=== PATIENT | male | born 1980 | race Caucasian/White ===

== ENCOUNTER 2017-06-09 14:42 | Emergency (ER) | payer BC ==
[2017-06-09 14:45] VITALS: BP 125/79; PULSE 100; RESP 18; TEMP 97.8
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
--- NOTE | 2017-06-09 15:31 | XR ---
EXAMINATION TYPE: XR knee complete LT DATE OF EXAM: 06/09/2017 CLINICAL HISTORY: Left knee pain TECHNIQUE: Three views of the left knee are obtained. COMPARISON: None. FINDINGS: There is no acute fracture/dislocation evident in left knee. Mild medial compartment join t space narrowing is noted as well as tibial sclerosis. The remaining joint spaces appear within norm al limits. The overlying soft tissue appears unremarkable. IMPRESSION: There is no acute fracture or dislocation in the left knee.
== END 2017-06-09 16:21 | disposition home or self-care (01) ==
LOC: EC 14:42
DX: S83.412A Sprain of medial collateral ligament of left knee, initial encounter (principal); F17.200 Nicotine dependence, unspecified, uncomplicated; X50.1XXA Overexertion from prolonged static or awkward postures, initial encounter; Y92.009 Unspecified place in unspecified non-institutional (private) residence as the place of occurrence of the external cause
CPT/HCPCS: 73562; 99283; L1830

== ENCOUNTER 2018-10-07 11:13 | Day surgery (SDC) | payer BC ==
[2018-10-05 12:05] VITALS: BMI 32.5
--- NOTE | 2018-10-07 05:05 | P.GSHP ---
History of Present Illness H&P Date: 10/07/18 CHIEF COMPLAINT: Colon screen HISTORY OF PRESENT ILLNESS: The patient is a 38-year-old male who presents for colon screen. Lower endoscopy was offered for further evaluation and management. PAST MEDICAL HISTORY: Please see list. PAST SURGICAL HISTORY: Please see list. MEDICATIONS: Please see list. ALLERGIES: Please see list. SOCIAL HISTORY: No illicit drug use FAMILY HISTORY: No reports of Crohn disease or ulcerative colitis. REVIEW OF ORGAN SYSTEMS: CONSTITUTIONAL: No reports of fevers or chills. PHYSICAL EXAM: VITAL SIGNS: Stable GENERAL: Well-developed pleasant in no acute distress. HEENT: No scleral icterus. Extraocular movements grossly intact. Moist buccal mucosa. NECK: Supple without lymphadenopathy. CHEST: Unlabored respirations. Equal bilateral excursions. CARDIOVASCULAR: Regular rate and rhythm. Distal 2+ pulses. ABDOMEN: Soft, nontender, nondistended. MUSCULOSKELETAL: No clubbing, cyanosis, or edema. ASSESSMENT: 1. Colon screen. PLAN: 1. Recommend proceeding with a lower endoscopy Past Medical History Past Medical History: No Reported History Additional Past Medical History / Comment(s): Hx pancreatitis (2017), states constipation, cramping & blood in stool. History of Any Multi-Drug Resistant Organisms: None Reported Past Surgical History: Appendectomy, Cholecystectomy, Orthopedic Surgery Additional Past Surgical History / Comment(s): FRACTURE LEFT TIBIA, PATELLA Past Anesthesia/Blood Transfusion Reactions: No Reported Reaction Past Psychological History: No Psychological Hx Reported Smoking Status: Former smoker Past Alcohol Use History: None Reported Additional Past Alcohol Use History / Comment(s): quit smoking 2 weeks ago, smoked 1/2-1 PPD. No alcohol fro over 8 months. Past Drug Use History: None Reported - Past Family History Father Family Medical History: Hypertension Medications and Allergies Home Medications Medication Instructions Recorded Confirmed Type Kratom (Supplement) 1 tab PO DIRECTED 10/05/18 History Multivitamins, Thera [Multivitamin 1 tab PO DAILY 10/05/18 10/05/18 History (formulary)] Vitamin B Complex 1 each PO DAILY 10/05/18 10/05/18 History Allergies Allergy/AdvReac Type Severity Reaction Status Date / Time No Known Allergies Allergy Verified 10/05/18 11:45
[~2018-10-07 11:13] MED LIST: LACTATED RINGERS 1,000 ML IV SCH
[2018-10-07 11:34] VITALS: TEMP 98.2
[2018-10-07] MEDS ORDERED: LIDOCAINE 1% 20 ML VIAL (10MG/ML) FOR IV START INTRADERMA ONE (11:36)
[2018-10-07] MEDS ORDERED: LIDOCAINE 1% INJ 10MG/ML (20 ML MDV) ONE (13:11)
[2018-10-07] MEDS ORDERED: PROPOFOL 10 MG/ML 20 ML VIAL IV ONE (13:11)
--- NOTE | 2018-10-07 13:49 | P.PCN ---
Date of Procedure: 10/07/18 Description of Procedure: PREOPERATIVE DIAGNOSIS: Colonoscopy screening, first Family history colon cancer, young age, very high risk POSTOPERATIVE DIAGNOSIS: Colonoscopy screening, first Family history colon cancer, young age, very high risk Rectal adenoma Sigmoid diverticulosis, early OPERATION: Colonoscopy to the ileocecal valve and appendiceal orifice. Colonoscopy with hot snare polypectomy SURGEON: Trini Rivera MD. ANESTHESIA: MAC. INDICATIONS: The patient is a 38-year-old male who presents for colonoscopy screening. He has family history of colon cancer at the age of 40s. Benefits and risks were described and informed consent was obtained. DESCRIPTION OF PROCEDURE: The patient had undergone Gatorade, MiraLAX and Dulcolax prep. He had been brought into the operating room and laid in the left lateral decubitus position. After adequate intravenous sedation, the rectum was examined with 2% lidocaine jelly. No external hemorrhoids were encountered. The rectal tone was within normal limits. No lesions were palpated in the rectal vault. An Olympus colonoscope was advanced until the ileocecal valve and appendiceal orifice were clearly viewed. The prep was poor with visualization of the mucosal folds. The scope was removed with visualization of each mucosal fold. Minimal sigmoid diverticulosis was encountered. Rectal adenoma 1 cm was snare polypectomy to completion. No grade 1 internal hemorrhoids were found. The colon was desufflated. The patient had tolerated the procedure well. Withdrawal time was over 6 minutes. FINDINGS: No internal hemorrhoids No external hemorrhoids No arteriovenous malformations Diffuse sigmoid diverticulosis Removal of 1 polyp: - Snare polypectomy 10 cm from the anal verge, 10 mm tubulovillous adenoma polyp. No focal colitis. RECOMMENDATIONS: Repeat colonoscopy 3 years, 2020 for high risk personal history and early family history of colon cancer Plan - Discharge Summary New Discharge Prescriptions: No Action Multivitamins, Thera [Multivitamin (formulary)] 1 tab PO DAILY Vitamin B Complex 1 each PO DAILY Kratom (Supplement) 1 tab PO DIRECTED Discharge Medication List Kratom (Supplement) 1 tab PO DIRECTED 10/05/18 [History] Multivitamins, Thera [Multivitamin (formulary)] 1 tab PO DAILY 10/05/18 [History ] Vitamin B Complex 1 each PO DAILY 10/05/18 [History]
[2018-10-07 14:03] VITALS: RESP 18
[2018-10-07 14:22] VITALS: BP 120/75; PULSE 70
== END 2018-10-07 14:24 | disposition home or self-care (01) ==
LOC: ORWHC2ENDO 11:13
PROVIDERS: ATTEND Surgery Plastic and Reconstructive Surgery
DX: Z12.11 Encounter for screening for malignant neoplasm of colon (principal); D12.8 Benign neoplasm of rectum; K57.30 Diverticulosis of large intestine without perforation or abscess without bleeding; Z80.0 Family history of malignant neoplasm of digestive organs; Z79.899 Other long term (current) drug therapy; Z90.49 Acquired absence of other specified parts of digestive tract; Z87.891 Personal history of nicotine dependence
CPT/HCPCS: 88305; 45385; J2001; J2704

== ENCOUNTER 2018-12-13 09:32 | Emergency (ER) | payer OTHER, BC ==
[2018-12-13 09:36] VITALS: RESP 18
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
--- NOTE | 2018-12-13 10:13 | XR ---
Lumbar spine HISTORY: Trauma and pain 3 views of the lumbar spine Lumbar vertebral bodies show preserved height, alignment, and bone mineralization. Spondylosis is pre sent at the thoracic lumbar junction. There is associated loss of disc height. Surgical clips noted i n the right upper quadrant. IMPRESSION: No acute fracture or subluxation. Degenerative disc disease. Consider lumbar MRI for bett er evaluation as indicated.
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
[2018-12-13 10:40] LABS: Appearance,Urine Clear (Clear); Bilirubin,Urine Negative (Negative); Blood,Urine Negative (Negative); Color,Urine Yellow; Glucose,Urine (UA) Negative (Negative); Ketones,Urine Negative (Negative); Leukocyte Esterase,Urine Negative (Negative); Nitrite,Urine Negative (Negative); PH, Urine 6.5 (5.0-8.0); Protein,Urine Negative (Negative); Specific Gravity,Urine 1.012 (1.001-1.035); Urobilinogen,Urine <2.0 mg/dL (<2.0)
[2018-12-13 10:56] VITALS: BP 114/74; PULSE 65; TEMP 97.6
== END 2018-12-13 10:54 | disposition home or self-care (01) ==
LOC: EC 09:32
DX: M25.551 Pain in right hip (principal); M54.5 Low back pain; Z87.891 Personal history of nicotine dependence; V43.52XA Car driver injured in collision with other type car in traffic accident, initial encounter; Y92.410 Unspecified street and highway as the place of occurrence of the external cause
CPT/HCPCS: 72100; 73521; 81003; 99284

== ENCOUNTER 2019-08-22 12:23 | Emergency (ER) | payer BC ==
[2019-08-22] MEDS ORDERED: SODIUM CHLORIDE 0.9% 500 ML 500 ML IV STA (13:24)
[2019-08-22 13:48] LABS: Basophils % (A) 1 %; Eosinophils # (A) 0.1 k/uL (0-0.7); Eosinophils % (A) 2 %; HGB 14.4 gm/dL (13.0-17.5); Lymphocytes # (A) 0.7 k/uL (1.0-4.8); Lymphocytes % (A) 17 %; MCH 31.2 pg (25.0-35.0); MCHC 34.3 g/dL (31.0-37.0); MCV 90.9 fL (80.0-100.0); Mean Platelet Volume 6.4; Monocytes # (A) 0.2 k/uL (0-1.0); Monocytes % (A) 5 %; Neutrophils # (A) 3.2 k/uL (1.3-7.7); Neutrophils % (A) 75 %; Platelet Count 241 k/uL (150-450); RBC 4.62 m/uL (4.30-5.90); RDW 12.1 % (11.5-15.5); WBC 4.3 k/uL (3.8-10.6)
--- NOTE | 2019-08-22 13:51 | ED ---
General Adult HPI - General Chief complaint: Chest Pain Stated complaint: chest pain Time Seen by Provider: 08/22/19 12:30 Source: patient, RN notes reviewed, old records reviewed Mode of arrival: ambulatory Limitations: no limitations - History of Present Illness Initial comments: This is a 39-year-old male presents emergency department because since August 12 he's been having episodes where he feels extremely shaky and has near syncopal events. Patient states happened about 6 times per patient states she was the events last 10-15 minutes occasionally and they have lasted longer. Patient states yesterday he was painting and he felt so short of breath that he had to sit down and rest and then the symptoms subsided and he felt back to normal. Patient states often he feels shaky all over and lightheaded. Patient states over the same period of time he has had multiple episodes of diaphoretic. Patient states nothing seems to make it better or worse. Patient states he had little episode of chest pain but has not felt any palpitations. Patient denies any current chest pain. Patient denies any recent fever chills or cough. Patient denies any recent trips or travel. Patient denies any swelling to legs or calf tenderness. Patient denies any illegal drugs. Patient denies any supplements or pre-workout drinks. - Related Data Home Medications Medication Instructions Recorded Confirmed traZODone HCL [Desyrel] 100 - 200 mg PO HS PRN 08/22/19 08/22/19 Allergies Allergy/AdvReac Type Severity Reaction Status Date / Time No Known Allergies Allergy Verified 08/22/19 12:32 Review of Systems ROS Statement: Those systems with pertinent positive or pertinent negative responses have been documented in the HPI. ROS Other: All systems not noted in ROS Statement are negative. Past Medical History Past Medical History: No Reported History Additional Past Medical History / Comment(s): Hx pancreatitis (2017), states constipation, cramping & blood in stool. History of Any Multi-Drug Resistant Organisms: None Reported Past Surgical History: Appendectomy, Cholecystectomy, Orthopedic Surgery Additional Past Surgical History / Comment(s): FRACTURE LEFT TIBIA, PATELLA Past Anesthesia/Blood Transfusion Reactions: No Reported Reaction Past Psychological History: No Psychological Hx Reported Smoking Status: Former smoker Past Alcohol Use History: None Reported Past Drug Use History: None Reported - Past Family History Father Family Medical History: Hypertension General Exam - General Exam Comments Initial Comments: GENERAL: Patient is well-developed and well-nourished. Patient is nontoxic and well-hydr ated and is in mild distress. ENT: Neck is soft and supple. No significant lymphadenopathy is noted. Oropharynx is clear. Moist mucous membranes. Neck has full range of motion without eliciting any pain. EYES: The sclera were anicteric and conjunctiva were pink and moist. Extraocular movements were intact and pupils were equal round and reactive to light. Eyelids were unremarkable. PULMONARY: Unlabored respirations. Good breath sounds bilaterally. No audible rales rhonchi or wheezing was noted. CARDIOVASCULAR: There is a regular rate and rhythm without any murmurs gallops or rubs. ABDOMEN: Soft and nontender with normal bowel sounds. SKIN: Skin is clear with no lesions or rashes and otherwise unremarkable. NEUROLOGIC: Patient is alert and oriented x3. Cranial nerves II through XII are grossly intact. Motor and sensory are also intact. Normal speech, volume and content. Symmetrical smile. MUSCULOSKELETAL: Normal extremities with adequate strength and full range of motion. No lower extremity swelling or edema. No calf tenderness. LYMPHATICS: No significant lymphadenopathy is noted PSYCHIATRIC: Normal psychiatric evaluation. Limitations: no limitations Course Vital Signs 08/22/19 08/22/19 12:29 13:52 Temperature 98.9 F Pulse Rate 97 Pulse Rate [ 75 Sitting] Pulse Rate [ 76 Standing] Pulse Rate [ 67 Supine] Respiratory 20 Rate Blood Pressure 136/74 Blood Pressure 118/85 [Sitting] Blood Pressure 111/90 [Standing] Blood Pressure 125/77 [Supine] O2 Sat by Pulse 96 Oximetry Medical Decision Making - Medical Decision Making EKG shows sinus rhythm at a rate of 83 bpm MI interval 212 QRS is 122 QT interval 398 QTC is 467. Patient's EKG shows no ST segment elevation or depression. Patient has no ST segment elevation. Chest x-ray showed no acute abnormality. I will back into reevaluate the patient he started to describe more of a dizziness picture than a complete syncopal episode though at times he didn't feel syncopal. So a CAT scan of his head was done and showed no acute abnormality. Patient did not want to stay in the emergency department wanted to follow-up on his own. - Lab Data Result diagrams: 08/22/19 13:28 08/22/19 13:28 Lab Results 1108/22/19 08/22/19 Range/Units 13:28 13:28 13:28 WBC 4.3 (3.8-10.6) k/uL RBC 4.62 (4.30-5.90) m/uL Hgb 14.4 (13.0-17.5) gm/dL Hct 42.0 (39.0-53.0) % MCV 90.9 (80.0-100.0) fL MCH 31.2 (25.0-35.0) pg MCHC 34.3 (31.0-37.0) g/dL RDW 12.1 (11.5-15.5) % Plt Count 241 (150-450) k/uL Neutrophils % 75 % Lymphocytes % 17 % Monocytes % 5 % Eosinophils % 2 % Basophils % 1 % Neutrophils # 3.2 (1.3-7.7) k/uL Lymphocytes # 0.7 L (1.0-4.8) k/uL Monocytes # 0.2 (0-1.0) k/uL Eosinophils # 0.1 (0-0.7) k/uL Basophils # 0.0 (0-0.2) k/uL PT 10.6 (9.0-12.0) sec INR 1.0 (<1.2) APTT 31.4 H (22.0-30.0) sec D-Dimer 0.25 (<0.60) mg/L FEU Sodium 143 (137-145) mmol/L Potassium 4.4 (3.5-5.1) mmol/L Chloride 109 H (98-107) mmol/L Carbon Dioxide 24 (22-30) mmol/L Anion Gap 10 mmol/L BUN 18 (9-20) mg/dL Creatinine 1.42 H (0.66-1.25) mg/dL Est GFR (CKD-EPI)AfAm 71 (>60 ml/min/1.73 sqM) Est GFR (CKD-EPI)NonAf 61 (>60 ml/min/1.73 sqM) Glucose 96 (74-99) mg/dL Calcium 9.0 (8.4-10.2) mg/dL Magnesium 2.0 (1.6-2.3) mg/dL Total Bilirubin 0.7 (0.2-1.3) mg/dL AST 31 (17-59) U/L ALT 40 (21-72) U/L Alkaline Phosphatase 73 (38-126) U/L Troponin I (0.000-0.034) ng/mL Total Protein 6.9 (6.3-8.2) g/dL Albumin 4.2 (3.5-5.0) g/dL Urine Opiates Screen (NotDetected) Ur Oxycodone Screen (NotDetected) Urine Methadone Screen (NotDetected) Ur Propoxyphene Screen (NotDetected) Ur Barbiturates Screen (NotDetected) U Tricyclic Antidepress (NotDetected) Ur Phencyclidine Scrn (NotDetected) Ur Amphetamines Screen (NotDetected) U Methamphetamines Scrn (NotDetected) U Benzodiazepines Scrn (NotDetected) Urine Cocaine Screen (NotDetected) U Marijuana (THC) Screen (NotDetected) 08/22/19 08/22/19 Range/Units 13:28 17:18 WBC (3.8-10.6) k/uL RBC (4.30-5.90) m/uL Hgb (13.0-17.5) gm/dL Hct (39.0-53.0) % MCV (80.0-100.0) fL MCH (25.0-35.0) pg MCHC (31.0-37.0) g/dL RDW (11.5-15.5) % Plt Count (150-450) k/uL Neutrophils % % Lymphocytes % % Monocytes % % Eosinophils % % Basophils % % Neutrophils # (1.3-7.7) k/uL Lymphocytes # (1.0-4.8) k/uL Monocytes # (0-1.0) k/uL Eosinophils # (0-0.7) k/uL Basophils # (0-0.2) k/uL PT (9.0-12.0) sec INR (<1.2) APTT (22.0-30.0) sec D-Dimer (<0.60) mg/L FEU Sodium (137-145) mmol/L Potassium (3.5-5.1) mmol/L Chloride (98-107) mmol/L Carbon Dioxide (22-30) mmol/L Anion Gap mmol/L BUN (9-20) mg/dL Creatinine (0.66-1.25) mg/dL Est GFR (CKD-EPI)AfAm (>60 ml/min/1.73 sqM) Est GFR (CKD-EPI)NonAf (>60 ml/min/1.73 sqM) Glucose (74-99) mg/dL Calcium (8.4-10.2) mg/dL Magnesium (1.6-2.3) mg/dL Total Bilirubin (0.2-1.3) mg/dL AST (17-59) U/L ALT (21-72) U/L Alkaline Phosphatase (38-126) U/L Troponin I <0.012 (0.000-0.034) ng/mL Total Protein (6.3-8.2) g/dL Albumin (3.5-5.0) g/dL Urine Opiates Screen Not Detected (NotDetected) Ur Oxycodone Screen Not Detected (NotDetected) Urine Methadone Screen Not Detected (NotDetected) Ur Propoxyphene Screen Not Detected (NotDetected) Ur Barbiturates Screen Not Detected (NotDetected) U Tricyclic Antidepress Not Detected (NotDetected) Ur Phencyclidine Scrn Not Detected (NotDetected) Ur Amphetamines Screen Not Detected (NotDetected) U Methamphetamines Scrn Not Detected (NotDetected) U Benzodiazepines Scrn Not Detected (NotDetected) Urine Cocaine Screen Not Detected (NotDetected) U Marijuana (THC) Screen Not Detected (NotDetected) Disposition Clinical Impression: Near syncope, Dizziness Disposition: HOME SELF-CARE Condition: Good Instructions (If sedation given, give patient instructions): Dizziness (ED) Is patient prescribed a controlled substance at d/c from ED?: No Referrals: Raphael Muñoz DO [Primary Care Provider] - 1-2 days Time of Disposition: 17:54
[2019-08-22 13:57] LABS: Albumin 4.2 g/dL (3.5-5.0); Potassium 4.4 mmol/L (3.5-5.1); Total Bilirubin 0.7 mg/dL (0.2-1.3); Total Protein 6.9 g/dL (6.3-8.2)
[2019-08-22 14:01] LABS: D-Dimer 0.25 mg/L FEU (<0.60); Partial Thromboplastin Time 31.4 sec (22.0-30.0); Prothrombin Time 10.6 sec (9.0-12.0)
--- NOTE | 2019-08-22 14:04 | XR ---
EXAMINATION TYPE: XR chest 2V DATE OF EXAM: 08/22/2019 COMPARISON: NONE HISTORY: Chest pain and dizziness. Dysrhythmia. TECHNIQUE: Frontal and lateral views of the chest are obtained. FINDINGS: There is no focal air space opacity, pleural effusion, or pneumothorax seen. The cardiac silhouette size is within normal limits. Slight underlying scoliosis is present. Spine straightening on lateral view. Cholecystectomy clips are noted. IMPRESSION: No acute cardiopulmonary process.
[2019-08-22 17:36] LABS: Amphetamine Screen,Urine Not Detected (NotDetected); Barbiturate Screen,Urine Not Detected (NotDetected); Benzodiazepines Screen,Urine Not Detected (NotDetected); Cocaine Screen,Urine Not Detected (NotDetected); Methadone Screen, Urine Not Detected (NotDetected); Opiate Screen,Urine Not Detected (NotDetected); Oxycodone Screen, Urine Not Detected (NotDetected); Phencyclidine Screen,Urine Not Detected (NotDetected); Tricyclic Antidepressant,Urine Not Detected (NotDetected); Urn Cannabinoid Scrn Not Detected (NotDetected)
--- NOTE | 2019-08-22 17:51 | CT ---
EXAMINATION TYPE: CT brain wo con DATE OF EXAM: 08/22/2019 COMPARISON: None HISTORY: Vertigo CT DLP: mGycm. Automated Exposure Control for Dose Reduction was Utilized. TECHNIQUE: CT scan of the head is performed without contrast. FINDINGS: Ventricles have normal size. There is no mass effect nor midline shift. There is no sign of intracranial hemorrhage. The calvarium is intact. There is no evidence of cerebral edema. IMPRESSION: Normal head CT scan.
[2019-08-22 18:08] VITALS: BP 129/78; PULSE 71; RESP 19; TEMP 98.1
== END 2019-08-22 18:08 | disposition home or self-care (01) ==
LOC: EC 12:23
DX: R55 Syncope and collapse (principal); R25.9 Unspecified abnormal involuntary movements; R61 Generalized hyperhidrosis; Z87.891 Personal history of nicotine dependence; Z82.49 Family history of ischemic heart disease and other diseases of the circulatory system
CPT/HCPCS: 36415; 70450; 71046; 80053; 80306; 83735; 84484; 85025; 85379; 85610; 85730; 93005; 96360; 99285